=== PATIENT | female | born 1990 | race Asian ===

== ENCOUNTER 2020-09-18 01:32 | Emergency (ER) | payer OTHER ==
[~2020-09-18] VITALS: Ht 170.2 cm; Wt 54.4 kg
[2020-09-18 01:56] VITALS: Ht 170.2 cm; Wt 54.4 kg
[2020-09-18 05:38] LABS: BASOPHIL % 0.2 % (0.2-1.3); PLATELET COUNT 297 x10^3mcL (179-408); RED CELL DISTRIBUTION WIDTH 13.5 % (12.3-17.7)
[2020-09-18 05:43] LABS: CALCIUM 9.1 mg/dL (8.5-10.1); CARBON DIOXIDE 22.4 mmol/L (21-32); CHLORIDE SERUM 102 mmol/L (98-107); CREATININE SERUM 0.7 mg/dL (0.6-1.0); GFR1 > 60 mL/min; GLUCOSE SERUM 149 mg/dL (74-106); POTASSIUM SERUM 3.6 mmol/L (3.5-5.1); SODIUM SERUM 144 mmol/L (136-145)
[2020-09-18 05:47] LABS: ALBUMIN 4.3 g/dL (3.4-5.0); ALKALINE PHOSPHATASE 62 U/L (46-116); ALT/SGPT 17 U/L (14-59); AST/SGOT 55 U/L (15-37); BILIRUBIN TOTAL 0.3 mg/dL (0.20-1.00); TOTAL PROTEIN, SERUM 7.4 g/dL (6.4-8.2)
[2020-09-18 13:09] LABS: UA SPECIFIC GRAVITY >=1.030 (1.005-1.035); microscopic required? YES; urine erythrocyte TRACE (NEGATIVE)
[2020-09-18 13:13] LABS: AMPHETAMINE QUAL UR NONE DETECTED (See below)
[2020-09-18 15:57] VITALS: BP 100/61
== END 2020-09-18 15:57 | disposition home or self-care (01) ==
LOC: ED 01:32
PROVIDERS: Emergency Medicine
DX: F10.129 Alcohol abuse with intoxication, unspecified (principal); D72.829 Elevated white blood cell count, unspecified; R73.9 Hyperglycemia, unspecified; R74.02 Elevation of levels of lactic acid dehydrogenase [LDH]; Z20.828 Contact with and (suspected) exposure to other viral communicable diseases
CPT/HCPCS: G0480; J1200; J1630; J2060; Q0162; U0003